=== PATIENT | male | born 1945 | race Caucasian/White ===

== ENCOUNTER 2017-08-25 05:23 | Day surgery (SDC) | payer OTHER ==
[~2017-08-25] VITALS: Ht 188 cm; Wt 101.6 kg
--- NOTE | ~2017-08-25 | S ---
[facility] [place] [address] SURGICAL PATH RPT PROCEDURE Name: PAMELA GALEANO Room #: DEP [facility]..#: [id number] Admission: 08/25/17 Date of : 43 Discharge: 08/25/17 Report #: [id number] Path Case #: [id number] PATHOLOGY REPORT COLLECTION DATE: 08/25/2017 RECEIVED DATE: 08/25/2017 SUBMITTING PHYS: Dr. Wilian Elias OTHER PHYS: SPECIMEN(S) RECEIVED: A.Right lower lid * * * * * * * * * * * * FINAL DIAGNOSIS: Skin, right lower lid, excision: - Reactive changes along with mild chronic inflammation, compatible with prior biopsy site. - No residual malignancy present. - New margins of resection free of invasive carcinoma or malignancy. (IUV:moises; 08/26/2017) PATHOLOGIST: Danyell Martinez M.D. REPORT ELECTRONICALLY SIGNED BY: Danyell Martinez M.D. DATE/TIME: 08/26/2017 12:44 * * * * * * * * * * * * GROSS PATHOLOGY: Specimen is received fresh from the OR labeled with the patient's name, and "right lower lid basal cell carcinoma", consists of an oriented ellipse of skin measuring 1.1 x 0.7 x 0.4 cm. It is oriented by Dr. Elias as medial, inferior, lateral and superior, these are assigned 12:00, 3:00, 6:00 and 9:00, respectively. The 12:00 to 3:00 to 6:00 is inked black, the 6:00 to 9:00 is inked blue, the 9:00 to 12:00 is inked green, and at this point the specimen is sectioned into four pieces and submitted entirely for frozen section as FSA1, this is subsequently submitted for permanent sections as A1. (IUV:moises; 08/25/2017) FROZEN SECTION DIAGNOSIS: (Danyell Martinez M.D.) FSA1, Skin, right lower lid basal cell carcinoma, excision: - Negative for invasive carcinoma at the margins. These findings are discussed with Dr. Wilian Elias in OR 6 at [facility] and a written report is placed in the chart. Testing performed by [facility] at [facility] [place] [address] [place] [address] SURGICAL PATH RPT PROCEDURE Name: PAMELA GALEANO Room #: DEP [facility].#: [id number] Admission: 08/25/17 Date of : 43 Discharge: 08/25/17 Report #: [id number] Path Case #: [id number] [address], [place] [address] CLINICAL HISTORY: Clinical history of basal cell carcinoma diagnosed on a recent biopsy. INITIAL CPT CODE(S): A; 67389, 08332 Professional services performed by [facility] at [facility] [address] [place] [address] Technical services performed by [facility] at [address] [place] [address], [address], [place] [address]. [facility] [address] [place] [address] PHONE: [phone] DIRECTOR: Jarrett Lee M.D. * * * END OF REPORT * * *
--- NOTE | ~2017-08-25 | S ---
[facility] [address] [place] [address] SURGICAL PATH RPT PROCEDURE Name: PAMELA GALEANO Room #: DEP [facility] M.R.#: [id number] Admission: 08/25/17 Date of : 43 Discharge: 08/25/17 Report #: [id number] Path Case #: [id number] PATHOLOGY REPORT DRAFT COLLECTION DATE: 08/25/2017 RECEIVED DATE: 08/25/2017 SPECIMEN(S) RECEIVED: Deborah peck
--- NOTE | ~2017-08-25 | O ---
[facility] [place] [address] OPERATIVE REPORT Name: PAMELA GALEANO Room #: DEP [facility]..#: [id number] Admission: 08/25/17 Attend Phys: Wilian Elias MD Discharge: 08/25/17 Date of : 43 Report #: [id number] THIS REPORT FOR: //name// CC: Alonso Elias DATE OF SERVICE: 08/25/2017 PREOPERATIVE DIAGNOSIS: Basal cell carcinoma of right lower lid lateral canthus. POSTOPERATIVE DIAGNOSIS: Basal cell carcinoma of right lower lid lateral canthus. PROCEDURE: Excision of basal cell carcinoma of right lower lid and lateral canthus with frozen sections and myocutaneous flap repair of defect. SURGEON: Wilian Elias M.D. DRIER TENDER: None. ANESTHESIA: MAC. COMPLICATIONS: None. INDICATIONS FOR SURGERY: This pleasant 72-year-old gentleman has a biopsy proven basal cell carcinoma in his right lower lid and lateral canthus. He presents today for excision of the residual tumor with frozen sections and subsequent repair of that defect. Informed consent was obtained to include but not limited to the potential risk for loss of vision, bleeding, infection, failure to improve the problem, the potential need for further surgery or treatment. DESCRIPTION OF PROCEDURE: The patient was taken to the operating room where 2% Xylocaine with epinephrine mixed with equal parts of 0.75% Marcaine with Wydase was administered transcutaneously and transconjunctivally to the right lower lid, the right lateral canthus, the right cheek and the right infratemporal fossa. The patient was subsequently prepped and draped in the usual sterile fashion. A fine tip skin marking pen was then utilized to outline the residual lesion including 1-2 mm of normal appearing tissue. The incisions were then made with a Traci scissor and drawn down to the periosteum to ensure that the entire lesion was removed. The lesion was then oriented on a drawing for the waiting pathologist as hemostasis was achieved in the field. The pathologist snap froze the specimen and found that the margins were clear of tumor. [address] [address] OPERATIVE REPORT Name: WALESKAPAMELA Kyle Room #: DEP [facility] M.R.#: [id number] Admission: 08/25/17 Attend Phys: Wilian Elias MD Discharge: 08/25/17 Date of : 43 Report #: [id number] A musculocutaneous flap was then developed with the orbicularis muscle down into the buccal musculature. The flap was resuspended laterally and superiorly from periosteum with 5-0 and 6-0 Vicryl sutures. The skin was closed with 6-0 plain gut sutures. The wound was then cleaned and dressed with erythromycin ophthalmic ointment. The patient subsequently transported to the recovery area having tolerated the procedures well with no anesthetic or operative complications being noted. <ELECTRONICALLY SIGNED> By: Wilian Elias MD 08/29/17 0620 1229 [id number] Wilian Elias MD /jevon
[~2017-08-25 05:23] MED LIST: ASPIR 8181 MG PO; CRESTOR40 MG PO; FLOMAX0.4 MG PO; LISINOPRIL-HCT1 EACH PO; LISINOPRIL10 MG PO; MYRBETRIQ50 MG PO; NORVASC5 MG PO; OMEPRAZOLE 20 M20 M1 PO; PROSCAR 5MG TABL5 MG PO; SYNTHROID200 MCG PO
[2017-08-25 11:00] VITALS: BP 139/69
== END 2017-08-25 13:10 | disposition home or self-care (01) ==
LOC: TBA 05:23 → OR 05:23
DX: D23.11 Other benign neoplasm of skin of right eyelid, including canthus (principal); I10 Essential (primary) hypertension; E78.00 Pure hypercholesterolemia, unspecified; I25.2 Old myocardial infarction; K21.9 Gastro-esophageal reflux disease without esophagitis; E03.9 Hypothyroidism, unspecified; Z98.890 Other specified postprocedural states; F17.220 Nicotine dependence, chewing tobacco, uncomplicated; Z95.5 Presence of coronary angioplasty implant and graft; Z98.41 Cataract extraction status, right eye; Z98.42 Cataract extraction status, left eye; Z96.651 Presence of right artificial knee joint; Z86.73 Personal history of transient ischemic attack (TIA), and cerebral infarction without residual deficits; Z88.0 Allergy status to penicillin; Z88.8 Allergy status to other drugs, medicaments and biological substances; Z79.82 Long term (current) use of aspirin; Z79.899 Other long term (current) drug therapy
CPT/HCPCS: 50010; 50101; 50386; 50398; 51636; 56528; 56531; 62110; 62850; 70005